=== PATIENT | female | born 1940 | race Caucasian/White ===

== ENCOUNTER 2024-08-22 20:25 | Inpatient (IN) | payer MEDICARE, OTHER ==
[~2024-08-22] VITALS: Ht 157.5 cm; Wt 52.6 kg
[2024-08-22] MEDS: BLOOD SUGAR DIAGNOSTIC 1 EACH STRIP VI ONE (20:45)
[2024-08-22] MEDS ORDERED: MAGNESIUM HYDROXIDE 30 ML LIQUID UDC PO PRN (20:45)
[2024-08-22] MEDS ORDERED: MAG HYDROX/AL HYDROX/SIMETH 30 ML LIQUID UDC PO PRN (20:45)
[2024-08-22] MEDS ORDERED: TEMAZEPAM 7.5 MG CAPSULE PO PRN (20:45)
[2024-08-22] MEDS ORDERED: ATOR40TA PO (20:50)
[2024-08-22] MEDS ORDERED: LEVE500T9 PO (20:50)
[2024-08-22] MEDS ORDERED: ASPI81TA31 PO (20:50)
[2024-08-22] MEDS ORDERED: CLON-418 PO (20:50)
[2024-08-22] MEDS ORDERED: DONE5TAB7 PO (20:50)
[2024-08-22] MEDS ORDERED: HYDR-894 PO (20:50)
[2024-08-22] MEDS ORDERED: SERT50TA PO (20:50)
[2024-08-22] MEDS ORDERED: HYDR-3980 PO (20:50)
[2024-08-22] MEDS ORDERED: OXCA300T4 PO (20:50)
[2024-08-22] MEDS ORDERED: ZOLP10TA2 PO (20:50)
[2024-08-22] MEDS ORDERED: GABA300C PO (20:50)
[2024-08-22] MEDS ORDERED: LOSA100T31 PO (20:50)
[2024-08-22 21:18] VITALS: BP 138/96; TEMP 98.5; O2SAT 95
[2024-08-22] MEDS: hydrALAZINE HCL 25 MG TABLET PO SCH (22:00)
[2024-08-22] MEDS: levETIRAcetam 500 MG TABLET PO SCH (22:00)
[2024-08-22] MEDS: HYDROCODONE/APAP 5-325MG TABLET PO PRN (22:35)
[2024-08-22] MEDS: levETIRAcetam 500 MG TABLET PO ONE (22:35)
[2024-08-22] MEDS: TEMAZEPAM 7.5 MG CAPSULE PO PRN (23:11)
[2024-08-23] MEDS: LORAZEPAM 1 MG TABLET PO PRN (02:23)
[2024-08-23] MEDS: GABAPENTIN 300 MG CAPSULE PO SCH (06:25)
[2024-08-23 07:42] VITALS: BP 147/83; TEMP 97.7; O2SAT 97
[2024-08-23 08:14] LABS: BASOPHILS % (AUTO) 0.8 % (0.0-2.0); EOSINOPHILS # (AUTO) 0.1 K/uL (0.0-0.7); EOSINOPHILS % (AUTO) 2.8 % (0.0-7.0); HEMATOCRIT 39.3 % (31.2-41.9); HEMOGLOBIN 13.1 g/dL (10.9-14.3); LYMPHOCYTES % (AUTO) 46.7 % (20.5-51.5); MEAN CORPUSCULAR HEMOGLOBIN 30.2 uug (24.7-32.8); MEAN CORPUSCULAR HGB CONC 33 g/dL (32.3-35.6); MEAN CORPUSCULAR VOLUME 90.8 fL (75.5-95.3); MONOCYTES # (AUTO) 0.2 K/uL (0.1-1.30); MONOCYTES % (AUTO) 5.7 % (0.0-11.0); NEUTROPHILS # (AUTO) 1.9 K/uL (1.8-8.9); PLATELET COUNT (AUTO) 173 K/uL (179-408); RED BLOOD CELL COUNT(AUTO) 4.33 MIL/uL (3.63-4.92); RED CELL DISTRIBUTION WIDTH 21.2 % (12.3-17.7); WHITE BLOOD COUNT (AUTO) 4.3 K/uL (3.8-11.8)
[2024-08-23 08:21] LABS: DIFFERENTIAL COMMENT 1
[2024-08-23 08:42] LABS: THYROID STIMULATING HORMONE 1.762 mIU/mL (0.358-3.740)
[2024-08-23] MEDS ORDERED: HYDR-3973 PO (08:48)
[2024-08-23] MEDS ORDERED: METO-357 PO (08:50)
[2024-08-23] MEDS ORDERED: NITR100C6 PO (08:55)
[2024-08-23] MEDS ORDERED: ACET325T53 PO (08:56)
[2024-08-23] MEDS ORDERED: CRAN450T9 PO (08:57)
[2024-08-23] MEDS ORDERED: BISA10SU61 RC (08:58)
[2024-08-23] MEDS ORDERED: IPRA3AMP23 NEB (09:00)
[2024-08-23] MEDS ORDERED: MAGN400O6 PO (09:02)
[2024-08-23 09:03] LABS: ALANINE AMINOTRANSFERASE 29 U/L (14-59); ALBUMIN 3.2 g/dL (3.4-5.0); ALKALINE PHOSPHATASE 136 U/L (50-136); ASPARTATE AMINOTRANSFERASE 28 U/L (15-37); BILIRUBIN,TOTAL 0.4 mg/dL (0.2-1.0); CALCIUM 8.8 mg/dL (8.5-10.1); CARBON DIOXIDE 27 mmol/L (21-32); CHLORIDE 102 mmol/L (98-107); CREATININE 0.5 mg/dL (0.6-1.3); GLUCOSE 102 mg/dL (74-106); MAGNESIUM 1.6 mg/dL (1.8-2.4); PHOSPHOROUS 2.8 mg/dL (2.5-4.9); POTASSIUM 3.5 mmol/L (3.5-5.1); SODIUM SERUM 138 mmol/L (136-145); TOTAL PROTEIN, SERUM 7.8 g/dL (6.4-8.2); UREA NITROGEN, BLOOD 8 mg/dL (7-18)
[2024-08-23] MEDS ORDERED: NA P133E RC (09:03)
[2024-08-23] MEDS ORDERED: HYDROCODONE/APAP 5-325MG TABLET PO PRN (12:15)
[2024-08-23] MEDS ORDERED: BISACODYL 10 MG SUPP.RECT RC PRN (12:15)
[2024-08-23] MEDS: LOSARTAN POTASSIUM 50 MG TABLET PO SCH (13:16)
[2024-08-23] MEDS: ASPIRIN 81 MG TAB.CHEW PO SCH (13:16)
[2024-08-23] MEDS: OXCARBAZEPINE 300 MG TABLET PO SCH (13:19)
[2024-08-23 16:09] VITALS: BP 131/78; TEMP 97.6; O2SAT 98
[2024-08-23] MEDS: NITROFURANTOIN/NITROFURAN MAC 100 MG CAPSULE PO SCH (17:37)
[2024-08-23 20:00] VITALS: BP 102/77; TEMP 98.4; O2SAT 93
[2024-08-23] MEDS: ATORVASTATIN 40 MG TABLET PO SCH (20:23)
[2024-08-23 22:00] VITALS: BP 136/77; TEMP 98.2; O2SAT 96
[2024-08-24 07:37] VITALS: BP 112/69; TEMP 98; O2SAT 98
[2024-08-24] MEDS ORDERED: CRANBERRY FRUIT PO SCH (09:00)
[2024-08-24] MEDS: METOPROLOL SUCCINATE XL 50 MG TAB.SR.24H PO SCH (09:20)
[2024-08-24] MEDS: SERTRALINE HCL 50 MG TABLET PO SCH (09:20)
[2024-08-24] MEDS: ENSURE ENLIVE (VAN) 240 ML LIQUID PO SCH (09:22)
[2024-08-24] MEDS: LORAZEPAM 1 MG TABLET PO PRN (09:53)
[2024-08-24 15:41] VITALS: BP 115/72; TEMP 98.6; O2SAT 95
[2024-08-24 20:00] VITALS: BP 123/59; TEMP 98.1; O2SAT 95
[2024-08-24] MEDS: TEMAZEPAM 15 MG CAPSULE PO PRN (22:32)
[2024-08-25 08:14] VITALS: BP 139/73; TEMP 98.3; O2SAT 97
[2024-08-25 17:38] VITALS: BP 139/63; TEMP 98.3; O2SAT 96
[2024-08-25 20:00] VITALS: BP 119/54; TEMP 98.5; O2SAT 94
[2024-08-25] MEDS: ACETAMINOPHEN 325 MG TABLET PO PRN (22:14)
[2024-08-26 08:08] VITALS: BP 135/65; TEMP 98; O2SAT 100
[2024-08-26] MEDS: CLONIDINE HCL 0.1 MG TABLET PO PRN (08:46)
[2024-08-26 17:01] VITALS: BP 130/63; TEMP 98; O2SAT 97
[2024-08-26 20:00] VITALS: BP 147/75; TEMP 97.9; O2SAT 94
[2024-08-27 08:16] VITALS: BP 151/56; TEMP 97.7; O2SAT 92
[2024-08-27 16:44] VITALS: BP 127/70; TEMP 98.1; O2SAT 93
[2024-08-27 22:10] VITALS: BP 148/79; TEMP 98.7; O2SAT 94
[2024-08-28 07:30] VITALS: BP 169/75; TEMP 98.5; O2SAT 93
[2024-08-28] MEDS: SERTRALINE HCL 50 MG TABLET PO SCH (09:42)
[2024-08-28 11:15] VITALS: BP 145/72; O2SAT 96
[2024-08-28] MEDS: LORAZEPAM 1 MG TABLET PO PRN (12:41)
[2024-08-28 16:30] VITALS: BP 174/88; TEMP 98.7; O2SAT 94
[2024-08-28 20:04] VITALS: BP 112/57; TEMP 98.4; O2SAT 97
[2024-08-29 07:50] VITALS: BP 120/70; TEMP 98; O2SAT 92
[2024-08-29] MEDS: LOPERAMIDE HCL 2 MG CAPSULE PO PRN (13:54)
[2024-08-29 15:17] VITALS: BP 127/55; TEMP 98.2; O2SAT 98
[2024-08-29 20:00] VITALS: BP 124/75; TEMP 98.1; O2SAT 95
[2024-08-30 07:59] VITALS: BP 118/62; TEMP 98.2; O2SAT 96
[2024-08-30] MEDS ORDERED: SERTRALINE HCL 50 MG TABLET PO SCH (09:00)
[2024-08-30] MEDS: SERTRALINE HCL 100 MG TABLET PO SCH (09:39)
[2024-08-30 15:30] VITALS: BP 126/86; TEMP 98; O2SAT 96
[2024-08-30 20:00] VITALS: BP 81/47; TEMP 98; O2SAT 93
[2024-08-31 08:14] VITALS: BP 145/60; TEMP 98; O2SAT 98
[2024-08-31 13:33] VITALS: BP 147/70; O2SAT 97
[2024-08-31 20:04] VITALS: BP 136/56; TEMP 98.1; O2SAT 67
[2024-09-01 08:20] VITALS: BP 110/59; TEMP 98.5; O2SAT 95
[2024-09-01 20:00] VITALS: BP 116/55; TEMP 99.2; O2SAT 94
[2024-09-02 08:18] VITALS: BP 146/58; TEMP 98.3; O2SAT 97
[2024-09-02] MEDS: SERTRALINE HCL 100 MG TABLET PO SCH (08:44)
[2024-09-02 16:47] VITALS: BP 97/47; TEMP 97.9; O2SAT 98
[2024-09-02 19:58] VITALS: BP 101/51; TEMP 97.9; O2SAT 97
[2024-09-03 08:24] VITALS: BP 147/59; TEMP 98; O2SAT 98
[2024-09-03 16:44] VITALS: BP 113/52; TEMP 97.9; O2SAT 97
[2024-09-03] MEDS ORDERED: MAGNESIUM OXIDE 400 MG TABLET PO SCH (21:00)
== END 2024-09-03 17:15 | DRG 885 ==
LOC: EDSEX 20:25 → GPS 20:25
PROVIDERS: ADMIT Psychiatry & Neurology Psychiatry
DX: F33.2 Major depressive disorder, recurrent severe without psychotic features (principal); I11.0 Hypertensive heart disease with heart failure; R45.851 Suicidal ideations; F03.94 Unspecified dementia, unspecified severity, with anxiety; I50.32 Chronic diastolic (congestive) heart failure; G89.4 Chronic pain syndrome; G40.909 Epilepsy, unspecified, not intractable, without status epilepticus; E03.9 Hypothyroidism, unspecified; J44.9 Chronic obstructive pulmonary disease, unspecified; S00.03XA Contusion of scalp, initial encounter; W18.39XA Other fall on same level, initial encounter; Y92.230 Patient room in hospital as the place of occurrence of the external cause; F25.9 Schizoaffective disorder, unspecified; E78.5 Hyperlipidemia, unspecified; Z86.73 Personal history of transient ischemic attack (TIA), and cerebral infarction without residual deficits
CPT/HCPCS: 36415; 70450; 83735; 84100; 84443; 85025